=== PATIENT | female | born 1950 | race Caucasian/White ===

== ENCOUNTER 2018-03-13 14:15 | Emergency (ER) | payer OTHER ==
[2018-03-13 14:30] VITALS: BP 154/75; PULSE 60; TEMP 97.8; BMI 24.9
--- NOTE | 2018-03-13 14:33 | PDOC ---
Rapid Medical Evaluation Chief Complaint: Eye Problem Medical Evaluation: Allergies Allergy/AdvReac Type Severity Reaction Status Date / Time Penicillins Allergy Verified 03/13/18 14:27 03/13/18 14:28 I have performed a brief in-person evaluation of this patient. The patient presents with a chief complaint of: acute onset of red eye right Pertinent physical exam findings: bright red right / right subconjunctival hemmorhage I have ordered the following: nothing The patient will proceed to the ED for further evaluation. 03/13/18 14:32
--- NOTE | 2018-03-13 14:46 | PDOC ---
History of Present Illness - General Chief Complaint: Eye Problem Stated Complaint: RIGHT EYE PROBLEM Time Seen by Provider: 03/13/18 14:37 History Source: Patient Exam Limitations: No Limitations - History of Present Illness Initial Comments: 03/13/18 14:38 acute onset of redness to right eye ~ 30 mins aqgo. No Pain / vision WnL. Past History - Past Medical History Allergies/Adverse Reactions: Allergies Allergy/AdvReac Type Severity Reaction Status Date / Time Penicillins Allergy Verified 03/13/18 14:27 Home Medications: Ambulatory Orders Levothyroxine [Synthroid] mcg PO DAILY 12/14/11 Anemia: No Asthma: No Cancer: No Cardiac Disorders: No COPD: No GI Disorders: Yes (IBS, colitis) - Surgical History Abdominal Surgery: Yes (intussusception, adhesions to ovary) - Suicide/Smoking/Psychosocial Hx Smoking Status: No Smoking History: Never smoked Number of Cigarettes Smoked Daily: 0 Hx Alcohol Use: No Drug/Substance Use Hx: No Review of Systems - Review of Systems Able to Perform ROS?: Yes Is the patient limited Mohawk proficient: Yes Constitutional: Yes: See HPI. No: Symptoms Reported, Fever, Malaise HEENTM: Yes: See HPI. No: Symptoms Reported, Eye Pain, Blurred Vision, Tearing , Ear Discharge Respiratory: Yes: See HPI ABD/GI: No: Symptoms Reported : No: Symptoms Reported Musculoskeletal: No: Symptoms Reported Integumentary: No: Symptoms Reported Neurological: Yes: See HPI. No: Symptoms reported, Headache All Other Systems: Reviewed and Negative *Physical Exam - Vital Signs Last Vital Signs Temp Pulse Resp BP Pulse Ox 97.8 F 60 16 154/75 97 03/13/18 14:27 03/13/18 14:27 03/13/18 14:27 03/13/18 14:27 03/13/18 14:27 - Physical Exam General Appearance: Yes: Nourished, Appropriately Dressed. No: Apparent Distress HEENT: positive: MICHEAL, Normal ENT Inspection, TMs Normal, Pharynx Normal, Other (50% subconjuctival hemmorage to medial aspect of right eye with noted source / vessel. Visual acuity WNL non tender/ no photophobia ) Neck: positive: Supple. negative: Tender Respiratory/Chest: positive: Lungs Clear Gastrointestinal/Abdominal: positive: Soft. 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 - no treatment needed / *DC/Admit/Observation/Transfer Diagnosis at time of Disposition: Subconjunctival hemorrhage of right eye - Discharge Dispostion Disposition: HOME Condition at time of disposition: Stable Decision to Admit order: No - Referrals - Patient Instructions Printed Discharge Instructions: DI for Subconjunctival Hemorrhage Additional Instructions: Nothing needs to be done for this problem DO NOT USE VISINE as will make worse. - Post Discharge Activity Forms/Work/School Notes: Back to Work
== END 2018-03-13 15:02 | disposition home or self-care (01) ==
LOC: JERFT 14:15
DX: H11.31 Conjunctival hemorrhage, right eye (principal); K58.9 Irritable bowel syndrome, unspecified
CPT/HCPCS: 99281-25